=== PATIENT | female | born 1990 | race Caucasian/White ===

== ENCOUNTER 2018-04-07 16:49 | Emergency (ER) | payer OTHER, MEDICAID ==
[~2018-04-07] VITALS: Ht 165.1 cm; Wt 104.3 kg
[2018-04-07 17:21] LABS: URINE BILIRUBIN NEGATIVE (Negative); URINE BLOOD NEGATIVE (Negative); URINE CLARITY CLEAR; URINE COLOR YELLOW; URINE GLUCOSE-RANDOM NEGATIVE (Negative); URINE KETONES NEGATIVE (Negative); URINE LEUKOCYTES NEGATIVE (Negative); URINE NITRITE NEGATIVE (Negative); URINE PROTEIN NEGATIVE (Negative); URINE UROBILINOGEN 0.2 E.U./dl (0.2-1.0)
[2018-04-07] MEDS ORDERED: NORCO 5-325 TA1 EACH PO (18:42)
[2018-04-07] MEDS ORDERED: MEDROLDOSEPACK PO (18:42)
[2018-04-07] MEDS ORDERED: NABUMETONE 750750 M1 PO (18:42)
[2018-04-07 18:54] VITALS: BP 124/62
== END 2018-04-07 18:55 | disposition home or self-care (01) ==
LOC: M.ERS 16:49
PROVIDERS: Nurse Practitioner Family
DX: M47.894 Other spondylosis, thoracic region (principal); M51.24 Other intervertebral disc displacement, thoracic region

== ENCOUNTER 2018-06-05 20:59 | Emergency (ER) | payer OTHER ==
[~2018-06-05] VITALS: Ht 165.1 cm; Wt 104.3 kg
[~2018-06-05 20:59] MED LIST: MEDROLDOSEPACK PO; NABUMETONE 750750 M1 PO; NORCO 5-325 TA1 EACH PO
[2018-06-05 21:38] LABS: URINE CLARITY SL HAZY; URINE COLOR YELLOW
[2018-06-05 21:39] LABS: URINE BILIRUBIN NEGATIVE (Negative); URINE BLOOD NEGATIVE (Negative); URINE GLUCOSE-RANDOM NEGATIVE (Negative); URINE KETONES NEGATIVE (Negative); URINE NITRITE-REFLEX NEGATIVE (Negative); URINE PROTEIN NEGATIVE (Negative); URINE SPECIFIC GRAVITY > 1.030 (1.005-1.030); URINE UROBILINOGEN 0.2 E.U./dl (0.2-1.0)
[2018-06-05 21:40] LABS: URINE LEUKOCYTES-REFLEX NEGATIVE (Negative)
[2018-06-05 21:42] LABS: BACTERIA-REFLEX >30 Many /HPF (None Seen); MUCUS >6 Heavy strn/LPF (None Seen); SQUAMOUS >10 Many /LPF (0-3); URINE RBC 3-10 Few /HPF (0-2); URINE WBC-REFLEX 0-5 Rare /HPF (0-5)
[2018-06-05 21:46] LABS: ABSOLUTE BASOPHILS 0.1 thou/uL (0.0-0.2); ABSOLUTE EOSINOPHILS 0.1 thou/uL (0.0-0.7); ABSOLUTE LYMPHOCYTES 2.2 thou/uL (0.8-5.3); ABSOLUTE MONOCYTES 0.6 thou/uL (0.0-1.2); ABSOLUTE NEUTROPHILS 4.8 thou/uL (1.6-8.1); BASOPHILS 0.7 %; EOSINOPHILS 1.6 %; HEMATOCRIT 35.3 % (37.0-47.0); HEMOGLOBIN 11.6 gm/dL (12.0-15.0); LYMPHOCYTES 28.7 %; MCH 26.4 pg (26.0-34.0); MONOCYTES 7.1 %; MPV 8.8 fl. (7.2-11.1); NUCLEATED RBCS 0 /100WBC; PLATELET COUNT* 272 thou/uL (150-400); POLYS 61.9 %; RBC 4.41 mil/uL (4.20-5.00); RDW-CV 14.3 % (10.5-14.5); WBC 7.7 thou/uL (4.0-11.0)
[2018-06-05 22:01] LABS: CALCIUM 8.7 mg/dL (8.5-10.1); CREATININE 0.7 mg/dL (0.6-1.3)
[2018-06-05 22:05] LABS: ALBUMIN 3.5 g/dL (3.4-5.0); TOTAL BILIRUBIN 0.2 mg/dL (<0.1-1.0)
[2018-06-05] MEDS ORDERED: BENTYL 20 MG TA20 M1 PO (22:50)
[2018-06-05] MEDS ORDERED: PROMETHAZINE HC25 M1 PO (22:50)
[2018-06-05 23:59] VITALS: BP 124/75
== END 2018-06-06 | disposition home or self-care (01) ==
LOC: M.ERS 20:59
PROVIDERS: Nurse Practitioner
DX: R10.84 Generalized abdominal pain (principal); R19.7 Diarrhea, unspecified; R11.0 Nausea; M54.9 Dorsalgia, unspecified; G89.29 Other chronic pain

== ENCOUNTER 2018-09-12 17:51 | Emergency (ER) | payer BC ==
[~2018-09-12] VITALS: Ht 165.1 cm; Wt 104.3 kg
[~2018-09-12 17:51] MED LIST changes: +BENTYL 20 MG TA20 M1 PO; +PROMETHAZINE HC25 M1 PO
[2018-09-12] MEDS ORDERED: NORCO 5-325 TA1 EACH PO (18:16)
[2018-09-12] MEDS ORDERED: FLEXERIL PO (18:16)
[2018-09-12] MEDS ORDERED: MOBIC15 MG PO (18:16)
[2018-09-12 19:07] VITALS: BP 121/75
== END 2018-09-12 19:07 | disposition home or self-care (01) ==
LOC: M.ERS 17:51
DX: M54.6 Pain in thoracic spine (principal); G89.29 Other chronic pain; Z88.5 Allergy status to narcotic agent

== ENCOUNTER 2019-03-10 17:13 | Emergency (ER) | payer BC ==
[~2019-03-10] VITALS: Ht 165.1 cm; Wt 104.3 kg
[~2019-03-10 17:13] MED LIST changes: +FLEXERIL PO; +MOBIC15 MG PO
[2019-03-10 17:33] LABS: URINE BILIRUBIN NEGATIVE (Negative); URINE BLOOD NEGATIVE (Negative); URINE CLARITY CLEAR; URINE COLOR YELLOW; URINE GLUCOSE-RANDOM NEGATIVE (Negative); URINE KETONES NEGATIVE (Negative); URINE LEUKOCYTES-REFLEX NEGATIVE (Negative); URINE NITRITE-REFLEX NEGATIVE (Negative); URINE PROTEIN NEGATIVE (Negative); URINE SPECIFIC GRAVITY 1.015 (1.005-1.030); URINE UROBILINOGEN 0.2 E.U./dl (0.2-1.0)
[2019-03-10 17:42] LABS: AMP/METHAMP Negative (Negative); BARBITURATES Negative (Negative); BENZODIAZEPINES Negative (Negative); COCAINE Negative (Negative); METHADONE Negative (Negative); OPIATES Negative (Negative); PCP Negative (Negative); THC Negative (Negative)
[2019-03-10 17:52] VITALS: BP 117/68
[2019-03-10] MEDS ORDERED: LIDODERM1 EACH TRANSDERM (17:53)
[2019-03-10] MEDS ORDERED: MEDROLDOSEPACK PO (17:53)
[2019-03-10] MEDS ORDERED: NORCO 5-325 TA1 EAC1 PO (17:53)
== END 2019-03-10 17:52 | disposition home or self-care (01) ==
LOC: M.ERS 17:13
PROVIDERS: Nurse Practitioner Psychiatric/Mental Health
DX: M54.6 Pain in thoracic spine (principal); Z88.5 Allergy status to narcotic agent; Z98.890 Other specified postprocedural states; G89.29 Other chronic pain; Z79.899 Other long term (current) drug therapy

== ENCOUNTER 2019-03-25 02:18 | Emergency (ER) | payer BC ==
[~2019-03-25] VITALS: Ht 165.1 cm; Wt 104.3 kg
[~2019-03-25 02:18] MED LIST changes: +LIDODERM1 EACH TRANSDERM; +NORCO 5-325 TA1 EAC1 PO
[2019-03-25 03:22] LABS: URINE BILIRUBIN NEGATIVE (Negative); URINE BLOOD NEGATIVE (Negative); URINE CLARITY CLEAR; URINE COLOR YELLOW; URINE GLUCOSE-RANDOM NEGATIVE (Negative); URINE KETONES NEGATIVE (Negative); URINE LEUKOCYTES-REFLEX NEGATIVE (Negative); URINE NITRITE-REFLEX NEGATIVE (Negative); URINE PROTEIN NEGATIVE (Negative); URINE SPECIFIC GRAVITY 1.025 (1.005-1.030); URINE UROBILINOGEN 0.2 E.U./dl (0.2-1.0)
[2019-03-25] MEDS ORDERED: TRAMADOL 50 MG50 MG PO (03:44)
[2019-03-25] MEDS ORDERED: LIORESAL 10 MG10 MG PO (03:44)
[2019-03-25 04:02] VITALS: BP 140/74
== END 2019-03-25 04:02 ==
LOC: M.ERS 02:18
PROVIDERS: Emergency Medicine
DX: M54.6 Pain in thoracic spine (principal); G89.29 Other chronic pain; Z90.49 Acquired absence of other specified parts of digestive tract; Z98.890 Other specified postprocedural states; Z88.6 Allergy status to analgesic agent

== ENCOUNTER 2019-06-01 16:13 | Emergency (ER) | payer BC ==
[~2019-06-01] VITALS: Ht 165.1 cm; Wt 113.4 kg
[~2019-06-01 16:13] MED LIST changes: +LIORESAL 10 MG10 MG PO; +TRAMADOL 50 MG50 MG PO
[2019-06-01] MEDS ORDERED: FLEXERIL PO (16:27)
[2019-06-01 16:48] LABS: ABSOLUTE EOSINOPHILS 0.1 thou/uL (0.0-0.7); ABSOLUTE MONOCYTES 0.5 thou/uL (0.0-1.2); ABSOLUTE NEUTROPHILS 4.9 thou/uL (1.6-8.1); BASOPHILS 0.5 %; EOSINOPHILS 1.9 %; HEMATOCRIT 37.2 % (37.0-47.0); HEMOGLOBIN 12.6 gm/dL (12.0-15.0); LYMPHOCYTES 26.3 %; MCH 26.6 pg (26.0-34.0); MCHC 33.9 g/dL (28.0-37.0); MCV 78.6 fL (80.0-100.0); MONOCYTES 6.5 %; MPV 8.8 fl. (7.2-11.1); NUCLEATED RBCS 0 /100WBC; PLATELET COUNT* 316 thou/uL (150-400); POLYS 64.8 %; RBC 4.74 mil/uL (4.20-5.00); RDW-CV 13.9 % (10.5-14.5); WBC 7.6 thou/uL (4.0-11.0)
[2019-06-01 16:48] LABS: URINE BILIRUBIN NEGATIVE (Negative); URINE BLOOD NEGATIVE (Negative); URINE CLARITY CLEAR; URINE COLOR YELLOW; URINE GLUCOSE-RANDOM NEGATIVE (Negative); URINE KETONES NEGATIVE (Negative); URINE LEUKOCYTES-REFLEX TRACE (Negative); URINE NITRITE-REFLEX NEGATIVE (Negative); URINE PROTEIN NEGATIVE (Negative); URINE SPECIFIC GRAVITY >= 1.030 (1.005-1.030); URINE UROBILINOGEN 0.2 E.U./dl (0.2-1.0)
[2019-06-01 16:55] LABS: CALCIUM 9.2 mg/dL (8.5-10.1); CREATININE 0.7 mg/dL (0.6-1.3); POTASSIUM 3.7 mmol/L (3.5-5.1)
[2019-06-01 16:58] LABS: SQUAMOUS >10 Many /LPF (0-3); URINE RBC None Seen /HPF (0-2); URINE WBC-REFLEX 0-5 Rare /HPF (0-5)
[2019-06-01 16:59] LABS: CASTS None Seen /LPF (None Seen); CRYSTALS None Seen /LPF (None Seen); MUCUS 4-6 Moderate strn/LPF (None Seen)
[2019-06-01 17:00] LABS: ALBUMIN 4.1 g/dL (3.4-5.0); TOTAL BILIRUBIN 0.3 mg/dL (<0.1-1.0); TOTAL PROTEIN 8.1 g/dL (6.4-8.2)
[2019-06-01 17:08] LABS: MONOTEST (MONOSPOT)* NEGATIVE (Negative)
[2019-06-01 17:27] LABS: INFLUENZA A ANTIGEN Negative (Negative); INFLUENZA B ANTIGEN Negative (Negative)
[2019-06-01] MEDS ORDERED: ONDANSETRON HCL4 M2 PO (18:02)
[2019-06-01] MEDS ORDERED: AUGMENTIN 875-1 EACH PO (18:02)
[2019-06-01 18:17] VITALS: BP 112/63
== END 2019-06-01 18:19 | disposition home or self-care (01) ==
LOC: M.ERS 16:13
PROVIDERS: Nurse Practitioner Family
DX: J06.9 Acute upper respiratory infection, unspecified (principal); K52.9 Noninfective gastroenteritis and colitis, unspecified; G89.29 Other chronic pain; Z88.5 Allergy status to narcotic agent; Z98.890 Other specified postprocedural states

== ENCOUNTER 2019-07-20 17:50 | Emergency (ER) | payer BC ==
[~2019-07-20] VITALS: Ht 165.1 cm; Wt 108.9 kg
[~2019-07-20 17:50] MED LIST changes: +AUGMENTIN 875-1 EACH PO; +ONDANSETRON HCL4 M2 PO
[2019-07-20] MEDS ORDERED: NORCO 5-325 TA1 EAC1 PO (18:53)
[2019-07-20] MEDS ORDERED: MEDROLDOSEPACK PO (18:53)
[2019-07-20 19:55] VITALS: BP 127/84
== END 2019-07-20 19:55 | disposition home or self-care (01) ==
LOC: M.ERS 17:50
DX: S33.5XXA Sprain of ligaments of lumbar spine, initial encounter (principal); G89.29 Other chronic pain; Z98.890 Other specified postprocedural states; Z90.89 Acquired absence of other organs; Z88.5 Allergy status to narcotic agent; X58.XXXA Exposure to other specified factors, initial encounter; Y93.89 Activity, other specified; Y92.89 Other specified places as the place of occurrence of the external cause; Y99.8 Other external cause status

== ENCOUNTER 2019-08-18 03:50 | Emergency (ER) | payer BC ==
[~2019-08-18] VITALS: Ht 165.1 cm; Wt 108.9 kg
[2019-08-18] MEDS ORDERED: MELOXICAM7.5 MG PO (04:09)
[2019-08-18] MEDS ORDERED: MEDROLDOSEPACK PO (04:59)
[2019-08-18] MEDS ORDERED: HYDROCODON-ACE1 EAC8 PO (04:59)
[2019-08-18 05:12] VITALS: BP 137/70
== END 2019-08-18 05:14 | disposition home or self-care (01) ==
LOC: M.ERS 03:50
DX: M72.2 Plantar fascial fibromatosis (principal); G89.29 Other chronic pain; Z88.5 Allergy status to narcotic agent; Z98.890 Other specified postprocedural states; Z90.89 Acquired absence of other organs

== ENCOUNTER 2019-09-16 06:18 | Emergency (ER) | payer BC ==
[~2019-09-16] VITALS: Ht 165.1 cm; Wt 108.9 kg
[~2019-09-16 06:18] MED LIST changes: +HYDROCODON-ACE1 EAC8 PO; +MELOXICAM7.5 MG PO
[2019-09-16 06:48] LABS: ABSOLUTE BASOPHILS 0.1 thou/uL (0.0-0.2); ABSOLUTE EOSINOPHILS 0.1 thou/uL (0.0-0.7); ABSOLUTE LYMPHOCYTES 1.9 thou/uL (0.8-5.3); ABSOLUTE MONOCYTES 0.5 thou/uL (0.0-1.2); ABSOLUTE NEUTROPHILS 3.8 thou/uL (1.6-8.1); BASOPHILS 0.9 %; EOSINOPHILS 2.1 %; HEMATOCRIT 34.7 % (37.0-47.0); HEMOGLOBIN 11.9 gm/dL (12.0-15.0); LYMPHOCYTES 30.1 %; MCH 26.9 pg (26.0-34.0); MCHC 34.4 g/dL (28.0-37.0); MCV 78.1 fL (80.0-100.0); MONOCYTES 7.3 %; MPV 8.9 fl. (7.2-11.1); NUCLEATED RBCS 0 /100WBC; PLATELET COUNT* 246 thou/uL (150-400); POLYS 59.6 %; RBC 4.44 mil/uL (4.20-5.00); RDW-CV 13.8 % (10.5-14.5); WBC 6.4 thou/uL (4.0-11.0)
[2019-09-16 07:02] LABS: CALCIUM 8.3 mg/dL (8.5-10.1); CREATININE 0.7 mg/dL (0.6-1.3); POTASSIUM 3.6 mmol/L (3.5-5.1)
[2019-09-16 07:04] LABS: INFLUENZA A ANTIGEN Negative (Negative); INFLUENZA B ANTIGEN Negative (Negative)
[2019-09-16 07:12] LABS: ALBUMIN 3.6 g/dL (3.4-5.0); TOTAL BILIRUBIN 0.3 mg/dL (<0.1-1.0); TOTAL PROTEIN 7.1 g/dL (6.4-8.2)
[2019-09-16] MEDS ORDERED: CYCLOBENZAPRINE5 MG PO (08:43)
[2019-09-16] MEDS ORDERED: MEDROLDOSEPACK PO (08:43)
[2019-09-16 08:49] VITALS: BP 110/50
--- NOTE | 2019-09-16 08:58 | EKG ---
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1990 Requested By: Alton Baron Order Number: [id number] MD: Mehul Bradley Measurements Intervals [place] Rate: 78 P: 30 MI: 113 QRS: 19 QRSD: 92 T: 0 QT: 375 QTc: 428 Interpretive Statements Sinus rhythm Borderline short MI interval Borderline T wave abnormalities Baseline wander in lead(s) V1,V5 No previous ECG available for comparison Electronically Signed On 09-16-2019 8:57:43 CDT by Mehul Bradley [email or web address] <ELECTRONICALLY SIGNED> By: Mehul Bradley MD, [facility] 09/16/19 0857 0623 Mehul Bradley MD, [facility] /EPI
== END 2019-09-16 08:50 | disposition still patient (30) ==
LOC: M.ERS 06:18
PROVIDERS: Emergency Medicine Emergency Medical Services
DX: R07.89 Other chest pain (principal); R05 Cough; G89.29 Other chronic pain; M54.9 Dorsalgia, unspecified; Z98.890 Other specified postprocedural states; Z88.5 Allergy status to narcotic agent

== ENCOUNTER 2019-11-05 20:24 | Emergency (ER) | payer OTHER, BC ==
[~2019-11-05] VITALS: Ht 165.1 cm; Wt 113.4 kg
[~2019-11-05 20:24] MED LIST changes: +CYCLOBENZAPRINE5 MG PO
[2019-11-05] MEDS ORDERED: TRAMADOL 50 MG50 MG PO ×2 (21:55→21:56)
[2019-11-05 22:05] VITALS: BP 122/69
== END 2019-11-05 22:06 | disposition home or self-care (01) ==
LOC: M.ERS 20:24
DX: M79.644 Pain in right finger(s) (principal); M54.9 Dorsalgia, unspecified; G89.29 Other chronic pain; Z90.49 Acquired absence of other specified parts of digestive tract; Z98.890 Other specified postprocedural states; Z88.6 Allergy status to analgesic agent

== ENCOUNTER 2019-11-12 14:15 | Emergency (ER) | payer BC ==
[~2019-11-12] VITALS: Ht 165.1 cm; Wt 113.4 kg
[2019-11-12] MEDS ORDERED: HYDROCODON-ACE1 EAC8 PO (14:28)
[2019-11-12 15:10] LABS: URINE BILIRUBIN NEGATIVE (Negative); URINE BLOOD NEGATIVE (Negative); URINE CLARITY CLEAR; URINE COLOR YELLOW; URINE GLUCOSE-RANDOM NEGATIVE (Negative); URINE KETONES NEGATIVE (Negative); URINE LEUKOCYTES-REFLEX NEGATIVE (Negative); URINE NITRITE-REFLEX NEGATIVE (Negative); URINE PROTEIN NEGATIVE (Negative); URINE SPECIFIC GRAVITY >= 1.030 (1.005-1.030); URINE UROBILINOGEN 0.2 E.U./dl (0.2-1.0)
[2019-11-12 15:11] LABS: ABSOLUTE EOSINOPHILS 0.1 thou/uL (0.0-0.7); ABSOLUTE LYMPHOCYTES 1.6 thou/uL (0.8-5.3); ABSOLUTE MONOCYTES 0.3 thou/uL (0.0-1.2); ABSOLUTE NEUTROPHILS 4.9 thou/uL (1.6-8.1); BASOPHILS 0.3 %; EOSINOPHILS 1.5 %; HEMATOCRIT 35.1 % (37.0-47.0); HEMOGLOBIN 11.9 gm/dL (12.0-15.0); LYMPHOCYTES 22.8 %; MCH 27.1 pg (26.0-34.0); MCV 79.8 fL (80.0-100.0); MONOCYTES 4.8 %; MPV 9.1 fl. (7.2-11.1); NUCLEATED RBCS 0 /100WBC; PLATELET COUNT* 251 thou/uL (150-400); POLYS 70.6 %; RDW-CV 14.1 % (10.5-14.5)
[2019-11-12 15:48] LABS: CALCIUM 8.7 mg/dL (8.5-10.1); CREATININE 0.7 mg/dL (0.6-1.3); POTASSIUM 3.8 mmol/L (3.5-5.1)
[2019-11-12 15:52] LABS: ALBUMIN 3.3 g/dL (3.4-5.0); TOTAL BILIRUBIN 0.3 mg/dL (<0.1-1.0); TOTAL PROTEIN 6.8 g/dL (6.4-8.2)
[2019-11-12] MEDS ORDERED: ZOFRAN4 MG PO (16:58)
[2019-11-12 17:31] VITALS: BP 129/56
== END 2019-11-12 17:32 | disposition home or self-care (01) ==
LOC: M.ERS 14:15
PROVIDERS: Physician Assistant
DX: R10.84 Generalized abdominal pain (principal); R11.2 Nausea with vomiting, unspecified; R19.7 Diarrhea, unspecified; M54.9 Dorsalgia, unspecified; G89.29 Other chronic pain; Z90.49 Acquired absence of other specified parts of digestive tract; Z98.890 Other specified postprocedural states; Z88.6 Allergy status to analgesic agent

== ENCOUNTER 2019-11-17 19:15 | Emergency (ER) | payer BC ==
[~2019-11-17] VITALS: Ht 165.1 cm; Wt 113.4 kg
[~2019-11-17 19:15] MED LIST changes: +ZOFRAN4 MG PO
[2019-11-17 19:35] LABS: URINE BILIRUBIN NEGATIVE (Negative); URINE BLOOD NEGATIVE (Negative); URINE CLARITY SL CLOUDY; URINE COLOR YELLOW; URINE GLUCOSE-RANDOM NEGATIVE (Negative); URINE KETONES NEGATIVE (Negative); URINE LEUKOCYTES-REFLEX 1+ (Negative); URINE NITRITE-REFLEX NEGATIVE (Negative); URINE PROTEIN NEGATIVE (Negative); URINE SPECIFIC GRAVITY 1.025 (1.005-1.030); URINE UROBILINOGEN 0.2 E.U./dl (0.2-1.0)
[2019-11-17 19:48] LABS: BACTERIA-REFLEX >30 Many /HPF (None Seen); CASTS None Seen /LPF (None Seen); CRYSTALS None Seen /LPF (None Seen); MUCUS 4-6 Moderate strn/LPF (None Seen); SQUAMOUS >10 Many /LPF (0-3); URINE RBC 0-2 Rare /HPF (0-2); URINE WBC-REFLEX 0-5 Rare /HPF (0-5)
[2019-11-17 19:49] LABS: ABSOLUTE BASOPHILS 0.1 thou/uL (0.0-0.2); ABSOLUTE EOSINOPHILS 0.1 thou/uL (0.0-0.7); ABSOLUTE LYMPHOCYTES 1.7 thou/uL (0.8-5.3); ABSOLUTE MONOCYTES 0.4 thou/uL (0.0-1.2); ABSOLUTE NEUTROPHILS 5.7 thou/uL (1.6-8.1); BASOPHILS 0.8 %; EOSINOPHILS 1.6 %; HEMATOCRIT 34.2 % (37.0-47.0); HEMOGLOBIN 11.6 gm/dL (12.0-15.0); LYMPHOCYTES 21.3 %; MCH 27.1 pg (26.0-34.0); MCHC 34.1 g/dL (28.0-37.0); MCV 79.5 fL (80.0-100.0); MONOCYTES 5.1 %; NUCLEATED RBCS 0 /100WBC; PLATELET COUNT* 255 thou/uL (150-400); POLYS 71.2 %; RDW-CV 13.6 % (10.5-14.5); WBC 8.1 thou/uL (4.0-11.0)
[2019-11-17 20:02] LABS: ALBUMIN 3.3 g/dL (3.4-5.0); CREATININE 0.7 mg/dL (0.6-1.3); POTASSIUM 3.5 mmol/L (3.5-5.1); TOTAL BILIRUBIN 0.2 mg/dL (<0.1-1.0); TOTAL PROTEIN 7.1 g/dL (6.4-8.2)
[2019-11-17 20:09] LABS: CALCIUM 8.3 mg/dL (8.5-10.1)
[2019-11-17] MEDS ORDERED: NORCO 5-325 TA1 EAC1 PO (21:27)
[2019-11-17] MEDS ORDERED: ZOFRAN ODT4 MG DISSOLVE (21:27)
[2019-11-17] MEDS ORDERED: PROTONIX40 M4 PO (21:27)
[2019-11-17 21:38] VITALS: BP 121/59
--- NOTE | 2019-11-18 08:47 | EKG ---
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
== END 2019-11-17 21:39 | disposition home or self-care (01) ==
LOC: M.ERS 19:15
PROVIDERS: Nurse Practitioner Family
DX: R10.12 Left upper quadrant pain (principal); R10.32 Left lower quadrant pain; R11.2 Nausea with vomiting, unspecified; Z90.49 Acquired absence of other specified parts of digestive tract; Z98.890 Other specified postprocedural states; Z88.6 Allergy status to analgesic agent

== ENCOUNTER 2020-02-01 14:30 | Emergency (ER) | payer BC ==
[~2020-02-01] VITALS: Ht 165.1 cm; Wt 104.3 kg
[~2020-02-01 14:30] MED LIST changes: +PROTONIX40 M4 PO; +ZOFRAN ODT4 MG DISSOLVE
[2020-02-01] MEDS ORDERED: ZANAFLEX4 MG PO (16:53)
[2020-02-01] MEDS ORDERED: IBUPROFEN 800800 M1 PO (16:53)
[2020-02-01] MEDS ORDERED: NORCO 5-325 TA1 EAC2 PO (16:53)
[2020-02-01 17:03] VITALS: BP 135/70
== END 2020-02-01 17:04 | disposition home or self-care (01) ==
LOC: M.ERS 14:30
DX: M54.5 Low back pain (principal); R51 Headache; G89.29 Other chronic pain; Z90.49 Acquired absence of other specified parts of digestive tract; Z98.890 Other specified postprocedural states; Z88.6 Allergy status to analgesic agent

== ENCOUNTER 2020-02-21 20:34 | Emergency (ER) | payer BC ==
[~2020-02-21] VITALS: Ht 165.1 cm; Wt 113.4 kg
[~2020-02-21 20:34] MED LIST changes: +IBUPROFEN 800800 M1 PO; +NORCO 5-325 TA1 EAC2 PO; +ZANAFLEX4 MG PO
[2020-02-21] MEDS ORDERED: CIPROFLOXIN HC2.5 M1 OPHTHALMIC (21:06)
[2020-02-21] MEDS ORDERED: NAPROSYN500 MG PO (21:06)
[2020-02-21 21:17] VITALS: BP 140/88
== END 2020-02-21 21:18 | disposition home or self-care (01) ==
LOC: M.ERS 20:34
DX: M54.5 Low back pain (principal); H57.89 Other specified disorders of eye and adnexa; G89.29 Other chronic pain; Z88.5 Allergy status to narcotic agent; Z98.890 Other specified postprocedural states; Z90.89 Acquired absence of other organs

== ENCOUNTER 2020-04-24 16:33 | Emergency (ER) | payer BC ==
[~2020-04-24] VITALS: Ht 165.1 cm; Wt 110.7 kg
[~2020-04-24 16:33] MED LIST changes: +CIPROFLOXIN HC2.5 M1 OPHTHALMIC; +NAPROSYN500 MG PO
[2020-04-24] MEDS ORDERED: LORCET 5-325 M1 EACH PO (16:44)
[2020-04-24] MEDS ORDERED: TRAMADOL 50 MG50 MG PO (16:44)
[2020-04-24 17:31] LABS: ABSOLUTE EOSINOPHILS 0.1 thou/uL (0.0-0.7); ABSOLUTE LYMPHOCYTES 2.1 thou/uL (0.8-5.3); ABSOLUTE MONOCYTES 0.4 thou/uL (0.0-1.2); ABSOLUTE NEUTROPHILS 4.9 thou/uL (1.6-8.1); BASOPHILS 0.7 %; EOSINOPHILS 1.8 %; HEMOGLOBIN 12.3 gm/dL (12.0-15.0); LYMPHOCYTES 27.9 %; MCH 26.5 pg (26.0-34.0); MCHC 33.3 g/dL (28.0-37.0); MCV 79.8 fL (80.0-100.0); MONOCYTES 5.4 %; MPV 9.3 fl. (7.2-11.1); NUCLEATED RBCS 0 /100WBC; PLATELET COUNT* 272 thou/uL (150-400); POLYS 64.2 %; RBC 4.64 mil/uL (4.20-5.00); RDW-CV 13.7 % (10.5-14.5); WBC 7.7 thou/uL (4.0-11.0)
[2020-04-24 17:33] LABS: CALCIUM 9.3 mg/dL (8.5-10.1); CREATININE 0.9 mg/dL (0.6-1.3); POTASSIUM 3.7 mmol/L (3.5-5.1)
[2020-04-24 17:38] LABS: ALBUMIN 3.8 g/dL (3.4-5.0); TOTAL BILIRUBIN 0.2 mg/dL (<0.1-1.0); TOTAL PROTEIN 7.8 g/dL (6.4-8.2)
[2020-04-24] MEDS ORDERED: IBUPROFEN 800800 M1 PO (17:50)
[2020-04-24] MEDS ORDERED: MEDROLDOSEPACK PO (17:50)
[2020-04-24 18:04] VITALS: BP 129/69
--- NOTE | 2020-04-25 09:35 | EKG ---
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1990 Requested By: Monica Menard Order Number: [id number] MD: Reji Hale Measurements Intervals [place] Rate: 62 P: 21 NM: 125 QRS: 31 QRSD: 92 T: 27 QT: 396 QTc: 402 Interpretive Statements Sinus rhythm Borderline T abnormalities, anterior leads Compared to ECG 11/17/2019 19:30:50 T-wave abnormality now present Electronically Signed On 04-25-2020 9:34:53 [employer] by Reji Hale [email or web address] <ELECTRONICALLY SIGNED> By: Reji Hale MD, FACC 04/25/20 0934 1751 175 Reji Hale MD, [facility] /EPI
== END 2020-04-24 18:04 | disposition home or self-care (01) ==
LOC: M.ERS 16:33
PROVIDERS: Nurse Practitioner Family
DX: S16.1XXA Strain of muscle, fascia and tendon at neck level, initial encounter (principal); M54.6 Pain in thoracic spine; E04.1 Nontoxic single thyroid nodule; R20.2 Paresthesia of skin; G89.29 Other chronic pain; Z88.5 Allergy status to narcotic agent; Z90.89 Acquired absence of other organs; Z98.890 Other specified postprocedural states; X58.XXXA Exposure to other specified factors, initial encounter; Y93.89 Activity, other specified; Y92.89 Other specified places as the place of occurrence of the external cause; Y99.8 Other external cause status

== ENCOUNTER → 2020-04-26 | Outpatient (CLI) | payer OTHER ==
[~2020-04-26] MED LIST changes: +LORCET 5-325 M1 EACH PO
== END ==
LOC: M.ULTRA 14:30
PROVIDERS: ATTEND Family Medicine
DX: E04.1 Nontoxic single thyroid nodule (principal)

== ENCOUNTER → 2020-05-10 | Outpatient (CLI) | payer OTHER ==
--- NOTE | 2020-05-15 23:06 | PATH ---
[address] [address] PATHOLOGY RPT PROCEDURE Name: GERARDO GARCIA Room: [facility]#: [id number] Admission: 05/10/20 Date of : [birth year] Discharge: Report #: [id number] Path Case #: [id number] Note [facility] Accession Number: [id number] TESTS RESULT FLAG UNITS REF RANGE LAB Clinician Provided Cytology Information No. of containers..01 Other (Miscellaneous) Source: 01 N DIAGNOSIS: 02 N NEGATIVE FOR MALIGNANT CELLS. [place] CATEGORY II. SPECIMEN CONSISTS OF BENIGN FOLLICULAR CELLS, HEMOSIDERIN-LADEN MACROPHAGES, COLLOID, AND BLOOD. THIS PATTERN IS CONSISTENT WITH A BENIGN FOLLICULAR NODULE. THIS INTERPRETATION INCLUDES EVALUATION OF A CELL BLOCK. FOCAL AIR-DRYING ARTIFACT IS NOTED. NO CLASSIC CYTOLOGIC FEATURES OF PAPILLARY CARCINOMA ARE IDENTIFIED. OF NOTE, THIS IS A SMALL PORTION OF A LARGER LESION AND MAY NOT BE ENTIRELY BISQUE GRADER. CLINICAL AND RADIOGRAPHIC CORRELATION IS RECOMMENDED. THE CASE IS CO-REVIEWED WITH DR. CATRACHITA DUFFY. Pathologist ICD10: 02 E04.1 Signed out by: 02 Pam Hernandez MD, Pathologist NPI- [id number] Performed by: 01 Ce Morris, Special Education Resource Teacher ([facility]) Gross description: 01 20ML, LUIS FERNANDO, 4 FX 4 DQ /LCS 05/11/2020 0812 Local FLAG LEGEND: L-Low Normal,H-High Normal,LL-Alert Low,HH-Alert High <-Panic Low,>-Panic High,A-Abnormal,AA-Critical Abnormal Performed at: [address] [place] [address] Hasmukh Myles MD, [address] [address] Tatiana Schneider MD, Specimen Comment: A courtesy copy of this report has been sent to [phone] Specimen Comment: Report sent to Performed at: [address] [address] PATHOLOGY RPT PROCEDURE Name: GERARDO GARCIA [id number] Admission: 05/10/20 Date of : [birth year] Discharge: Report #: [id number] Path Case #: [id number] [address] [facility] [address], [place], [place] [id number] MD Hasmukh Myles MD Phone: [phone]
== END ==
LOC: M.ULTRA 12:24
PROVIDERS: ATTEND Family Medicine
DX: E04.1 Nontoxic single thyroid nodule (principal); Z98.890 Other specified postprocedural states; Z79.899 Other long term (current) drug therapy; Z88.8 Allergy status to other drugs, medicaments and biological substances

== ENCOUNTER → 2020-06-20 | Outpatient (CLI) | payer OTHER | LOC: M.RAD 15:44 | PROVIDERS: ATTEND Family Medicine | DX: S92.512A Displaced fracture of proximal phalanx of left lesser toe(s), initial encounter for closed fracture (principal); X58.XXXA Exposure to other specified factors, initial encounter; Y93.89 Activity, other specified; Y92.89 Other specified places as the place of occurrence of the external cause; Y99.8 Other external cause status ==

== ENCOUNTER 2021-02-04 19:11 | Emergency (ER) | payer OTHER ==
[~2021-02-04] VITALS: Ht 162.6 cm; Wt 108.9 kg
[2021-02-04] MEDS ORDERED: ZOFRAN ODT4 MG PO (20:19)
[2021-02-04 20:32] VITALS: BP 125/70
--- NOTE | 2021-02-05 10:52 | EKG ---
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1990 Requested By: Monica Menard Order Number: [id number] MD: Mehul Bradley Measurements Intervals [place] Rate: 62 P: 8 SD: 113 QRS: 41 QRSD: 95 T: 22 QT: 416 QTc: 423 Interpretive Statements Sinus rhythm Borderline short SD interval Low voltage, precordial leads Compared to ECG 04/24/2020 17:51:37 Low QRS voltage now present T-wave abnormality no longer present Electronically Signed On 02-05-2021 10:52:02 CDT by Mehul Bradley [email or web address] <ELECTRONICALLY SIGNED> By: Mehul Bradley MD, [facility] 02/05/21 1052 26 26 Mheul Bradley MD, [facility] /EPI
== END 2021-02-04 20:33 | disposition home or self-care (01) ==
LOC: M.ERS 19:11
DX: U07.1 COVID-19 (principal); Z90.89 Acquired absence of other organs; Z79.899 Other long term (current) drug therapy; Z79.2 Long term (current) use of antibiotics; Z88.5 Allergy status to narcotic agent

== ENCOUNTER 2021-03-27 10:24 | Emergency (ER) | payer OTHER ==
[~2021-03-27] VITALS: Ht 162.6 cm; Wt 108.9 kg
[~2021-03-27 10:24] MED LIST changes: +ZOFRAN ODT4 MG PO
[2021-03-27] MEDS ORDERED: BACTRIM DS TAB1 EACH PO (10:54)
[2021-03-27] MEDS ORDERED: IBUPROFEN 800800 M1 PO (10:54)
[2021-03-27] MEDS ORDERED: FLEXERIL PO (10:54)
[2021-03-27] MEDS ORDERED: CEPHALEXIN500 MG PO (10:54)
[2021-03-27 11:05] VITALS: BP 144/72
== END 2021-03-27 11:06 | disposition home or self-care (01) ==
LOC: M.ERS 10:24
DX: R59.0 Localized enlarged lymph nodes (principal); M54.2 Cervicalgia; Z90.89 Acquired absence of other organs; Z98.890 Other specified postprocedural states; Z86.16 Personal history of COVID-19; Z88.5 Allergy status to narcotic agent

== ENCOUNTER → 2021-07-19 | Outpatient (CLI) | payer BC ==
[~2021-07-19] MED LIST changes: +BACTRIM DS TAB1 EACH PO; +CEPHALEXIN500 MG PO
== END ==
LOC: M.ULTRA 15:51
PROVIDERS: ATTEND Family Medicine
DX: N92.0 Excessive and frequent menstruation with regular cycle (principal)